=== PATIENT | male | born 1965 | race African-American/Black ===

== ENCOUNTER → 2016-05-03 | Outpatient (CLI) | payer OTHER ==
[~2016-05-03] VITALS: Ht 182.9 cm; Wt 104.3 kg
[~2016-05-03] MED LIST: AMOXICILLIN875 MG PO; COREG25 M1 PO; COZAAR100 MG PO; Coreg PO; DIGOX250 MCG PO; DRISDOL; Ecotrin PO; FLEXERIL10 MG PO; JENTADUETO 2.51 EACH PO; MEDROL DOSEPAK4 MG PO; NOHOMEMEDS; NORCO 5/3251 TABLET PO; NORVASC5 MG PO; PERCOCET 5/31 TABLET PO; POTASSIUM CHLO20 MEQ PO; PRADAXA150 MG PO; PROTONIX40 MG PO; Pradaxa PO; VENTOLIN HFA18 GM IH; VITAMIN E400 UNIT PO; ZOCOR20 MG PO; Zestril,Prinivil PO; [UNRECOGNIZED DRUG - OTHER] PO
[2016-05-03 12:07] LABS: POINT-OF-CARE METER ID UU13113694
== END | disposition home or self-care (01) ==
LOC: AMB 11:16
PROVIDERS: Internal Medicine
PROC: 0DBL8ZX Excision of Transverse Colon, Via Natural or Artificial Opening Endoscopic, Diagnostic (ICD-10-PCS; principal; 2016-05-03)
DX: Z12.11 Encounter for screening for malignant neoplasm of colon (principal); D12.3 Benign neoplasm of transverse colon; K57.30 Diverticulosis of large intestine without perforation or abscess without bleeding; K64.8 Other hemorrhoids; F31.9 Bipolar disorder, unspecified; I51.9 Heart disease, unspecified; I10 Essential (primary) hypertension; K30 Functional dyspepsia; F17.200 Nicotine dependence, unspecified, uncomplicated; E11.9 Type 2 diabetes mellitus without complications
CPT/HCPCS: 82948; 88305; J2250

== ENCOUNTER 2016-12-01 07:19 | Emergency (ER) | payer OTHER ==
[~2016-12-01] VITALS: Ht 152.4 cm; Wt 102.7 kg
[2016-12-01] MEDS ORDERED: FLEXERIL10 MG PO (09:10)
[2016-12-01] MEDS ORDERED: NAPROSYN500 MG PO (09:10)
[2016-12-01 09:20] VITALS: BP 113/81
== END 2016-12-01 09:19 | disposition home or self-care (01) ==
LOC: EME 07:19
DX: M25.562 Pain in left knee (principal); M25.561 Pain in right knee; Z71.6 Tobacco abuse counseling; Z72.0 Tobacco use
CPT/HCPCS: 73564; 99281; 99284